=== PATIENT | male | born 1995 | race Caucasian/White ===

== ENCOUNTER 2022-09-01 10:39 | Outpatient (CLI) | payer BC, SELFPAY ==
[2022-09-01 17:16] LABS: Chloride* 106 mmol/L (96-114); Potassium* 4.7 mmol/L (3.6-5.1); Sodium* 142 mmol/L (135-149)
[2022-09-01 17:19] LABS: Blood Urea Nitrogen* 23 mg/dL (5-24); Carbon Dioxide* 32 mmol/L (20-32); Cholesterol* 190 mg/dL (90-199); Estimated Glomerular Filt Rate 106 ml/min; Glucose* 94 mg/dL (60-115); Triglycerides* 39 mg/dL (40-149)
[2022-09-01 17:20] LABS: Calcium* 9.8 mg/dL (8.4-10.6); HDL Cholesterol* 63 mg/dL (>=40); LDL Cholesterol Calculated 119 mg/dL (<100)
== END 2022-09-01 10:40 | disposition home or self-care (01) ==
PROVIDERS: Visit Provider Family Medicine
DX: Z00.00 Encounter for general adult medical examination without abnormal findings (principal); Z83.49 Family history of other endocrine, nutritional and metabolic diseases; Z13.6 Encounter for screening for cardiovascular disorders
CPT/HCPCS: 80048; 80061; 84443